=== PATIENT | male | born 1990 | race Caucasian/White ===

== ENCOUNTER 2017-01-12 09:38 | Emergency (ER) | payer OTHER ==
[2017-01-12 09:46] VITALS: BP 120/59; PULSE 61; RESP 16; TEMP 97.9; O2SAT 95
--- NOTE | 2017-01-12 10:04 | EDPHY ---
H & P Time Seen by Provider: 01/12/17 09:48 HPI/ROS: This patient reports electrical injury while at work. 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 He was holding with his left hand he reports mild discomfort to the volar forearm with no other associated symptoms except for apprehension anxiety. He explains that last week the received training about exposure to high-voltage electricity was concerned about potential injuries. ROS: Neuro: He has no headache. No change in mentation no numbness or tingling. The HEENT: No vision changes Pulmonary: No dyspnea Cardiovascular: No heart palpitations chest pain or lightheadedness Integumentary: No burn to his skin at the site of contact in his hand. : No flank pain or dark urine. 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 He denies any drug use. He is a nonsmoker Smoking Status: Former smoker Physical Exam: General Appearance: Alert, no distress. Eyes: Pupils equal and round no pallor or injection. ENT, Mouth: Mucous membranes moist. Respiratory: There are no retractions, lungs are clear to auscultation. Cardiovascular: Regular rate and rhythm. No murmur gallop rub Gastrointestinal: Abdomen is soft and nontender, no masses, bowel sounds normal. Neurological: GCS 15 with no focal sensory or motor deficits. Skin: Warm and dry, no rashes. There is no burn to his hand at the site of the contact with the device left palm and right palm Musculoskeletal: Neck is supple nontender. Extremities are symmetrical, full range of motion. No significant forearm tenderness in left former he feels a mild ache. There is no ecchymosis. No erythema. Psychiatric: Mood and affect are normal Constitutional: Initial Vital Signs Temperature (C) 36.6 C 01/12/17 09:42 Heart Rate 61 01/12/17 09:42 Respiratory Rate 16 01/12/17 09:42 Blood Pressure 120/59 L 01/12/17 09:42 O2 Sat (%) 95 01/12/17 09:42 O2 Delivery Mode Room Air Allergies/Adverse Reactions: amoxicillin Allergy (Verified 01/12/17 09:40) ceftriaxone sodium [From Rocephin] Allergy (Verified 01/12/17 09:40) Cephalosporins Allergy (Verified 01/12/17 09:40) Penicillins Allergy (Verified 01/12/17 09:40) Home Medications: Medication Instructions Recorded NK [No Known Home Meds] 01/12/17 MDM/Departure - [facility] ED Course/Re-evaluation: Given the exposure was very low voltage-110 volts with no burn injury and no cardiac symptoms I do not think this patient requires further workup at this time. He feels well clinically. Given appropriate warnings/red flag findings that would warrant return to the emergency department. Understands this plan and patient feels comfortable going back to work. - Depart Disposition: Home, Routine, Self-Care Clinical Impression: Electric shock Qualifiers: Encounter type: initial encounter Qualified Code(s): T75.4XXA - Electrocution, initial encounter Condition: Good Instructions: Electrical [place] in Adults (ED) Additional Instructions: Diagnosis: Electric shock from low voltage Plan: Drink plenty fluids Ibuprofen or Tylenol for discomfort and arm if needed. Given low voltage, we do not expect any significant complications from this injury. He may return to work as tolerated. Return if he develops heart palpitations lightheadedness, flank pain, dark urine or other concerns. Stand Alone Forms: Work Excuse
== END 2017-01-12 10:15 | disposition home or self-care (01) ==
LOC: CED 09:38
DX: T75.4XXA Electrocution, initial encounter (principal); Z87.891 Personal history of nicotine dependence